=== PATIENT | male | born 1985 | race Caucasian/White ===

== ENCOUNTER 2025-05-15 15:27 | Inpatient (IN) | payer OTHER ==
[~2025-05-15] VITALS: Ht 182.8 cm; Wt 74.0 kg
[2025-05-15 15:34] VITALS: BP 129/80
[2025-05-15] MEDS ORDERED: LORazepam 2 MG/ML VIAL IV ONE ×2 (16:05→17:35)
[2025-05-15] MEDS ORDERED: SODIUM CHLORIDE 0.9% 1,000 ML IV ONE ×2 (16:10→21:30)
[2025-05-15 16:19] LABS: BASO # 0.1 10*3/uL (0.0-0.1); EOS # 0.1 10*3/uL (0.0-0.4); EOS % 0.7 % (1.0-4.0); HEMATOCRIT 43.1 % (42.0-52.0); MEAN CELL VOLUME 86.9 fl (80.0-94.0); MEAN CORPUSCULAR HGB 29.2 pg (27.0-31.0); MEAN CORPUSCULAR HGB CONC 33.6 g/dl (33.0-37.0); MEAN PLATELET VOLUME 9.7 fl (9.6-12.3); MONO # 0.5 10*3/uL (0.1-1.0); MONO % 5.5 % (3.0-9.0); NEUT # 6.3 10*3/uL (2.3-7.9); NEUT % 75.3 % (47.0-73.0); PLATELET COUNT AUTOMATED 291 10*3/uL (130-400); RED BLOOD COUNT 4.96 10*6/uL (4.50-5.90); WHITE BLOOD COUNT 8.3 10*3/uL (4.8-10.8)
[2025-05-15 16:41] LABS: ALKALINE PHOSPHATASE 85 U/L (46-116); BUN 10 mg/dl (9-23); CHLORIDE 109 mmol/L (98-107); CPK 105 U/L (34-171); POTASSIUM 3.7 mmol/L (3.4-5.1); SGPT/ALT 16 U/L (5-49); TOTAL PROTEIN 7.5 gm/dL (6.0-8.0)
[2025-05-15 16:57] LABS: BILIRUBIN Negative (Negative); BLOOD Negative (Negative); CLARITY Clear (Clear); COLOR Yellow (Yellow); GLUCOSE Negative (Negative); KETONE Negative (Negative); LEUKO ESTERASE Negative (Negative); NITRITE Negative (Negative); UROBILINOGEN 0.2 E.U./dl (0.0-1.0)
[2025-05-15 17:04] LABS: URINE AMPHETAMINES Positive (1000ng/ml); URINE BARBITURATES Negative (200ng/ml); URINE BENZODIAZEPINES Negative (200ng/ml); URINE CANNABINOIDS (THC) Positive (50ng/ml); URINE COCAINE Negative (300ng/ml); URINE METHADONE Negative (300ng/ml); URINE OPIATES Negative (300ng/ml); URINE PHENCYCLIDINE Negative (25ng/ml)
[2025-05-15 17:08] LABS: RBC 0-2 rbc/hpf (0-2); WBC 0-2 wbc/hpf (0-5)
[2025-05-15] MEDS ORDERED: Nicotine 21 MG PATCH T ONE (17:50)
[2025-05-15] MEDS ORDERED: Magnesium Hydroxide 30 ML UDC PO PRN (19:00)
[2025-05-15] MEDS ORDERED: ACETAMINOPHEN 650 MG SUPP R PRN (19:00)
[2025-05-15] MEDS ORDERED: ACETAMINOPHEN 325 MG TAB PO PRN (19:00)
[2025-05-15] MEDS ORDERED: BISACODYL 10 MG SUPP R PRN (19:00)
[2025-05-15] MEDS ORDERED: Ondansetron Hydrochloride 4 MG/2 ML VIAL IV PRN (19:00)
[2025-05-15] MEDS ORDERED: BISACODYL 5 MG TAB PO PRN (19:00)
[2025-05-15] MEDS ORDERED: Water, Sterile 10 ML VIAL IV PRN (19:05)
[2025-05-15] MEDS ORDERED: MAGNESIUM SULFATE 100 ML IV ONE (19:05)
[2025-05-15] MEDS ORDERED: LORazepam 2 MG/ML VIAL IV PRN (19:05)
[2025-05-15] MEDS ORDERED: FOLIC ACID 1 MG TAB PO ONE (19:05)
[2025-05-15] MEDS ORDERED: Dicyclomine Hydrochloride 20 MG TAB PO PRN (19:05)
[2025-05-15] MEDS ORDERED: hydrOXYzine 50 MG CAP PO PRN (19:05)
[2025-05-15] MEDS ORDERED: METHOCARBAMOL 750 MG TAB PO PRN (19:05)
[2025-05-15] MEDS ORDERED: Nicotine 21 MG PATCH T PRN (19:10)
[2025-05-15] MEDS ORDERED: Ondansetron Hydrochloride 4 MG TAB PO PRN (19:10)
[2025-05-15] MEDS ORDERED: MG-AL HYDROXIDE/SIMETICONE 30 ML UDC PO PRN (19:10)
[2025-05-15] MEDS ORDERED: Sennosides A and B 8.6 MG TAB PO PRN (19:10)
[2025-05-15] MEDS ORDERED: IBUPROFEN 600 MG TAB PO PRN (19:10)
[2025-05-15] MEDS ORDERED: Loperamide Hydrochloride 2 MG CAP PO PRN ×2 (19:10)
[2025-05-15 19:30] VITALS: BP 142/81
[2025-05-15] MEDS ORDERED: LORazepam 1 MG TAB PO SCH (20:00)
[2025-05-15 21:00] VITALS: BP 156/98
[2025-05-15] MEDS ORDERED: rOPINIRole Hydrochloride 0.25 MG TAB PO PRN (21:25)
[2025-05-15] MEDS ORDERED: cloNIDine Hydrochloride 0.1 MG TAB PO PRN (21:25)
[2025-05-15] MEDS ORDERED: Thiamine 200 MG/2 ML VIAL IV SCH (22:00)
[2025-05-15] MEDS ORDERED: Buprenorphine Hydrochloride 2 MG TAB SL SCH (22:00)
[2025-05-16] VITALS: BP 126/86
[2025-05-16 07:21] LABS: BASO # 0.1 10*3/uL (0.0-0.1); EOS # 0.4 10*3/uL (0.0-0.4); EOS % 4.8 % (1.0-4.0); HEMATOCRIT 42.1 % (42.0-52.0); MEAN CELL VOLUME 88.1 fl (80.0-94.0); MEAN CORPUSCULAR HGB 29.3 pg (27.0-31.0); MEAN CORPUSCULAR HGB CONC 33.3 g/dl (33.0-37.0); MEAN PLATELET VOLUME 9.9 fl (9.6-12.3); MONO # 0.6 10*3/uL (0.1-1.0); MONO % 7.2 % (3.0-9.0); NEUT # 5.5 10*3/uL (2.3-7.9); NEUT % 61.5 % (47.0-73.0); PLATELET COUNT AUTOMATED 261 10*3/uL (130-400); RED BLOOD COUNT 4.78 10*6/uL (4.50-5.90); WHITE BLOOD COUNT 8.9 10*3/uL (4.8-10.8)
[2025-05-16 08:00] VITALS: BP 133/75
[2025-05-16 08:05] LABS: BUN 8 mg/dl (9-23); CHLORIDE 108 mmol/L (98-107); CHOLESTEROL 120 mg/dL (<200); FREE T4 1.05 ng/dl (0.89-1.76); LDL CHOLESTEROL 60 mg/dL (9-159); POTASSIUM 3.7 mmol/L (3.4-5.1); TRIGLYCERIDES 58 mg/dl (<150)
[2025-05-16] MEDS ORDERED: MULTIVITAMIN 1 TAB TAB PO SCH (10:00)
[2025-05-16] MEDS ORDERED: Enoxaparin Sodium 40 MG/0.4 ML SYR SC SCH (10:00)
[2025-05-16 12:00] VITALS: BP 147/93
[2025-05-16 16:00] VITALS: BP 154/99
[2025-05-16 20:00] VITALS: BP 145/82
[2025-05-16] MEDS ORDERED: Buprenorphine Hydrochloride 2 MG TAB SL SCH (22:00)
[2025-05-16] MEDS ORDERED: LORazepam 1 MG TAB PO SCH (22:00)
[2025-05-17] VITALS: BP 144/98
[2025-05-17 08:00] VITALS: BP 149/98
[2025-05-17 12:00] VITALS: BP 143/96
[2025-05-17 16:00] VITALS: BP 140/96
[2025-05-17 20:00] VITALS: BP 132/94
[2025-05-18] VITALS: BP 140/86
[2025-05-18] MEDS ORDERED: LORazepam 1 MG TAB PO PRN
[2025-05-18] MEDS ORDERED: Buprenorphine Hydrochloride 2 MG TAB SL SCH (02:00)
[2025-05-18 06:25] LABS: BUN 14 mg/dl (9-23); CHLORIDE 100 mmol/L (98-107); POTASSIUM 4.3 mmol/L (3.4-5.1)
[2025-05-18 06:31] LABS: BASO # 0.1 10*3/uL (0.0-0.1); BASO % 1.2 % (0.0-1.0); EOS # 0.6 10*3/uL (0.0-0.4); EOS % 5.3 % (1.0-4.0); HEMATOCRIT 46.7 % (42.0-52.0); MEAN CELL VOLUME 87.9 fl (80.0-94.0); MEAN CORPUSCULAR HGB 29.4 pg (27.0-31.0); MEAN CORPUSCULAR HGB CONC 33.4 g/dl (33.0-37.0); MEAN PLATELET VOLUME 9.7 fl (9.6-12.3); MONO # 0.8 10*3/uL (0.1-1.0); MONO % 7.5 % (3.0-9.0); NEUT # 5.9 10*3/uL (2.3-7.9); NEUT % 52.5 % (47.0-73.0); PLATELET COUNT AUTOMATED 289 10*3/uL (130-400); RED BLOOD COUNT 5.31 10*6/uL (4.50-5.90); RED CELL DISTRI WIDTH 13.4 % (0-14.5); WHITE BLOOD COUNT 11.2 10*3/uL (4.8-10.8)
[2025-05-18 08:00] VITALS: BP 132/89
[2025-05-18] MEDS ORDERED: BUPRENORPHINE HY2 MG SL (11:14)
[2025-05-18 12:00] VITALS: BP 134/80
== END 2025-05-18 13:39 | disposition home or self-care (01) | DRG 897 ==
LOC: ED 15:27 → 5E 18:29 → EDHOLD 18:29 → 5E 19:44
PROVIDERS: Nurse Practitioner; ADMIT Internal Medicine; ATTEND Internal Medicine
DX: F10.10 Alcohol abuse, uncomplicated (principal); E87.20 Acidosis, unspecified; F19.10 Other psychoactive substance abuse, uncomplicated; R00.0 Tachycardia, unspecified; Y90.8 Blood alcohol level of 240 mg/100 ml or more; F11.29 Opioid dependence with unspecified opioid-induced disorder; F17.210 Nicotine dependence, cigarettes, uncomplicated; Z71.6 Tobacco abuse counseling; Z79.899 Other long term (current) drug therapy